=== PATIENT | male | born 1980 | race Caucasian/White ===

== ENCOUNTER 2018-05-02 23:04 | Emergency (ER) ==
[2018-05-02] MEDS ORDERED: LACTATED RINGERS 1,000 ML IV STA (23:26)
[2018-05-02 23:28] VITALS: BMI 46.5
--- NOTE | 2018-05-02 23:30 | ED.PDOC ---
General ED Provider: Dr. INGRID ALVES Chief Complaint: Cough Stated Complaint: Patient present with a 5 day history of productive cough, sinus conjestion and feeling pooly with nausea but no vomiting. Smokes 1 ppweek. He denies any current ETOH. Mid SOB. Time Seen by Physician: 23:25 Mode of Arrival: Walk-In Information Source: Patient Exam Limitations: No limitations Nursing and Triage Documentation Reviewed and Agree: Yes Does patient meet sepsis criteria?: No System Inflammatory Response Syndrome: Not Applicable Sepsis Protocol: For patient's 13 years and over: Temp is 96.8 and below OR 101 and greater Pulse >90 BPM Resp >20/minute Acutely Altered Mental Status Are patient's symptoms suggestive of a new infection, such as: -Pneumonia -Skin, Soft Tissue -Endocarditis -UTI -Bone, Joint Infection -Implantable Device -Acute Abdominal Infection -Wound Infection -Meningitis -Blood Stream Catheter Infection -Unknown Review of Systems - Review Of Systems Constitutional: Reports: Loss of appetite Eyes: Reports: No symptoms Ears, Nose, Mouth, Throat: Reports: Nose discharge Respiratory: Reports: Cough Cardiac: Reports: No symptoms. Denies: Chest pain, Edema GI: Reports: No symptoms : Reports: No symptoms Musculoskeletal: Reports: No symptoms. Denies: Joint pain, Joint swelling Skin: Reports: No symptoms Neurological: Reports: Anxiety Endocrine: Reports: No symptoms Hematologic/Lymphatic: Reports: No symptoms All Other Systems: Reviewed and Negative Past Medical History - Past Medical History Previously Healthy: Yes Endocrine: Reports: None Cardiovascular: Reports: None Respiratory: Reports: None Hematological: Reports: None Gastrointestinal: Reports: None Genitourinary: Reports: Kidney stones Neuro/Psych: Reports: Migraine, Anxiety Musculoskeletal: Reports: None Cancer: Reports: None Other Pertinent Past Medical History: Obesity - Surgical History General Surgical History: Reports: Tonsillectomy, Hernia Repair - Family History Family History: Reports: None - Social History Smoking Status: Current some day smoker, Light tobacco smoker, Chews tobacco Hx Substance Use: No Alcohol Screening: Occasionally - Immunizations Tetanus Shot up to Date: (UNKNOWN) Physical Exam - Physical Exam Appearance: Ill-appearing, Obese Ill-appearing: Moderate Pain Distress: Mild Eyes: JOELLEN, EOMI, Conjunctiva clear ENT: Ears normal, Nose normal, Oropharynx normal Neck: Supple Respiratory: Airway patent, Breath sounds clear, Breath sounds equal, Respirations nonlabored Cardiovascular: RRR, Pulses normal, No rub, No murmur GI/: Soft, Nontender, No masses, Bowel sounds normal, No Organomegaly Musculoskeletal: Normal strength, ROM intact, No edema, No calf tenderness Skin: Warm, Dry Neurological: Sensation intact, Motor intact Psychiatric: Anxious Interpretation - Radiology Interpretation Radiology Interpretation By: ED Physician Radiology Results: Negative Exam Interpreted: Portable CXR Re-Evaluation - Re-Evaluation Time of Re-Evaluation: 01:10 Status: Improved (breathing better) Critical Care Note - Critical Care Note Total Time (mins): 0 Comments: Labs reviewed and discussed wit patient Discussed elevated blood pressure and need to follow up Course - Course Hematology/Chemistry: 05/02/18 23:50 05/02/18 23:50 Orders, Labs, Meds: Lab Review 05/02/18 05/02/18 05/02/18 23:50 23:50 23:50 WBC 12.65 H RBC 5.19 Hgb 15.1 Hct 45.7 MCV 88.1 MCH 29.1 MCHC 33.0 RDW Coeff of Jarad 13.3 Plt Count 269 Immature Gran % (Auto) 0.5 Neut % (Auto) 66.8 Lymph % (Auto) 19.6 [place] % (Auto) 9.2 Eos % (Auto) 3.4 Baso % (Auto) 0.5 Immature Gran # (Auto) 0.1 Neut # (Auto) 8.5 H Lymph # (Auto) 2.5 [place] # (Auto) 1.2 Eos # (Auto) 0.4 Baso # (Auto) 0.1 Sodium 138 Potassium 4.4 Chloride 104 Carbon Dioxide 25 Anion Gap 13.4 BUN 12 Creatinine 0.95 Estimated GFR (MDRD) 90.00 BUN/Creatinine Ratio 12.63 Glucose 199 H Hemoglobin A1c Lactic Acid Calcium 9.7 Total Bilirubin 0.4 AST 19 ALT 41 Alkaline Phosphatase 101 Total Protein 7.1 Albumin 3.5 Globulin 3.6 Albumin/Globulin Ratio 0.97 Procalcitonin < 0.05 Urine Color Urine Clarity Urine pH Ur Specific [place] Urine Protein Urine Glucose (UA) Urine Ketones Urine Blood Urine Nitrite Urine Bilirubin Urine Urobilinogen Ur Leukocyte Esterase Influ A Molecular Assay Influ B Molecular Assay 05/02/18 05/02/18 05/02/18 23:50 23:50 23:50 WBC RBC Hgb Hct MCV MCH MCHC RDW Coeff of Jarad Plt Count Immature Gran % (Auto) Neut % (Auto) Lymph % (Auto) [place] % (Auto) Eos % (Auto) Baso % (Auto) Immature Gran # (Auto) Neut # (Auto) Lymph # (Auto) [place] # (Auto) Eos # (Auto) Baso # (Auto) Sodium Potassium Chloride Carbon Dioxide Anion Gap BUN Creatinine Estimated GFR (MDRD) BUN/Creatinine Ratio Glucose Hemoglobin A1c Lactic Acid 21.5 H Calcium Total Bilirubin AST ALT Alkaline Phosphatase Total Protein Albumin Globulin Albumin/Globulin Ratio Procalcitonin Urine Color Yellow Urine Clarity Clear Urine pH 6.0 Ur Specific [place] 1.025 Urine Protein Negative Urine Glucose (UA) Trace Urine Ketones Negative Urine Blood Negative Urine Nitrite Negative Urine Bilirubin Negative Urine Urobilinogen 0.2 Ur Leukocyte Esterase Negative Influ A Molecular Assay Negative by naat Influ B Molecular Assay Negative by naat 05/03/18 00:00 WBC RBC Hgb Hct MCV MCH MCHC RDW Coeff of Jarad Plt Count Immature Gran % (Auto) Neut % (Auto) Lymph % (Auto) [place] % (Auto) Eos % (Auto) Baso % (Auto) Immature Gran # (Auto) Neut # (Auto) Lymph # (Auto) [place] # (Auto) Eos # (Auto) Baso # (Auto) Sodium Potassium Chloride Carbon Dioxide Anion Gap BUN Creatinine Estimated GFR (MDRD) BUN/Creatinine Ratio Glucose Hemoglobin A1c 5.8 Lactic Acid Calcium Total Bilirubin AST ALT Alkaline Phosphatase Total Protein Albumin Globulin Albumin/Globulin Ratio Procalcitonin Urine Color Urine Clarity Urine pH Ur Specific [place] Urine Protein Urine Glucose (UA) Urine Ketones Urine Blood Urine Nitrite Urine Bilirubin Urine Urobilinogen Ur Leukocyte Esterase Influ A Molecular Assay Influ B Molecular Assay Orders Category Date Time Status NEBULIZER TREATMENT Stat CARDIO 05/02/18 23:33 Completed ED APPLY O2 .ONCE EMERGENCY 05/02/18 23:27 Active ED CHIEF COUNSEL APPLIED .ONCE EMERGENCY 05/02/18 23:27 Active ED IV/MEDIPORT/POWERPORT .ONCE EMERGENCY 05/02/18 23:54 Active ED VITAL SIGNS Q1HR EMERGENCY 05/02/18 23:27 Active BLOOD CULTURE (ED ONLY) Stat LAB 05/02/18 23:50 Received CBC W/ AUTO DIFF Stat LAB 05/02/18 23:50 Completed COMPREHENSIVE METABOLIC PANEL Stat LAB 05/02/18 23:50 Completed FLU A & B MOLECULAR [FLU A/B MOLECULAR] Stat LAB 05/02/18 23:50 Completed HEMOGLOBIN A1C Stat LAB 05/03/18 00:00 Completed LACTIC ACID Stat LAB 05/02/18 23:50 Completed MOLECULAR GROUP A STREP Stat LAB 05/02/18 23:50 Completed PROCALCITONIN Stat LAB 05/02/18 23:50 Completed URINALYSIS C & S IF INDICATED Stat LAB 05/02/18 23:50 Completed 0.9 % Sodium Chloride [Saline Flush] MEDS 05/02/18 23:54 Discontinued 1 syr IVF PRN PRN Azithromycin [Zithromax] MEDS 05/03/18 00:07 Discontinued 500 mg PO ONCE STA Ipratropium/Albuterol Neb [Duoneb] MEDS 05/02/18 23:32 Discontinued 1 vial NEB ONCE STA Methylprednisolone Sod Succ/Pf [Solu-Medrol 125 mg] MEDS 05/02/18 23:32 Discontinued 125 mg IVP ONCE STA Ringers Lactated Solution [Lactated Ringers] 1,000 ml MEDS 05/02/18 23:26 Discontinued IV 100 mls/hr CHEST, 1V AP ONLY Stat RADS 05/02/18 23:26 Taken Medications Discontinued Medications Generic Name Dose Route Start Last Admin Trade Name Freq PRN Reason Stop Dose Admin Albuterol/Ipratropium 1 vial 05/02/18 23:32 05/02/18 23:48 Duoneb NEB 05/02/18 23:33 1 vial ONCE STA Administration Azithromycin 500 mg 05/03/18 00:07 05/03/18 00:24 Zithromax PO 05/03/18 00:08 500 mg ONCE STA Administration Lactated Ringer's 1,000 mls @ 100 mls/hr 05/02/18 23:26 05/03/18 00:02 Lactated Ringers IV 05/03/18 09:25 100 mls/hr .Q10H STA Administration Methylprednisolone Sodium Succinate 125 mg 05/02/18 23:32 05/03/18 00:06 Solu-Medrol 125 Mg IVP 05/02/18 23:33 125 mg ONCE STA Administration Sodium Chloride 1 syr 05/02/18 23:54 05/03/18 00:02 Saline Flush IVF 1 syr PRN PRN Administration To flush IV Vital Signs: Temp Pulse Resp BP Pulse Ox 05/03/18 01:10 99.6 F 101 H 20 155/107 H 98 05/02/18 23:05 99.7 F H 120 H 24 139/91 H 95 Departure - Departure Time of Disposition: 01:15 Disposition: HOME SELF-CARE Discharge Problem: Elevated blood pressure reading, Obesity, Class III, BMI 40-49.9 (morbid obesity) Acute bronchitis Qualifiers: Bronchitis organism: other organism Qualified Code(s): J20.8 - Acute bronchitis due to other specified organisms Allergic rhinitis Qualifiers: Allergic rhinitis trigger: unspecified Allergic rhinitis seasonality: seasonal Qualified Code(s): J30.2 - Other seasonal allergic rhinitis Instructions: Acute Bronchitis (ED), Hypertension (ED), Low Fat Diet (ED), Weight Management (ED) Condition: Stable Pt referred to PMD for follow-up: Yes IPMP verified?: No Additional Instructions: Stop smoking Take medications as prescribed Follow up with PCP in 3 days to recheck your blood pressure Take steps to loose weight. Return if worse. Prescriptions: Azithromycin [Zithromax] 250 mg PO DIRECTED #6 tablet Prednisone 20 mg PO DAILYWM #5 tablet Allergies/Adverse Reactions: Allergies No Known Drug Allergies Adverse Reaction (Verified 05/02/18 23:15) Home Medications: Ambulatory Orders Azithromycin [Zithromax] 250 mg PO DIRECTED #6 tablet 05/03/18 Prednisone 20 mg PO DAILYWM #5 tablet 05/03/18 Disposition Discussed With: Patient
[2018-05-02] MEDS ORDERED: SOLU-MEDROL 125 MG IVP STA (23:32)
[2018-05-02] MEDS ORDERED: DUONEB NEB STA (23:32)
[2018-05-03] MEDS ORDERED: ZITHROMAX PO STA (00:07)
[2018-05-03 01:21] VITALS: BP 155/107; TEMP 99.6
--- NOTE | 2018-05-03 08:30 | DI ---
EXAM: Single view of the chest. History: Cough. Comparison: None available. Findings: Portable lordotic projection limits evaluation. Heart size is normal. No definite acute infiltrates. No appreciable pleural fluid and no pneumothorax. No acute osseous abnormalities. The re is right paratracheal prominence which is probably vascular in nature. Impression: No acute cardiopulmonary process.
== END 2018-05-03 01:20 | disposition home or self-care (01) ==
LOC: ED 23:04
DX: J20.9 Acute bronchitis, unspecified (principal); J30.2 Other seasonal allergic rhinitis; R03.0 Elevated blood-pressure reading, without diagnosis of hypertension; F17.210 Nicotine dependence, cigarettes, uncomplicated; Z68.41 Body mass index [BMI] 40.0-44.9, adult; E66.01 Morbid (severe) obesity due to excess calories
CPT/HCPCS: 36415; 80053; 81001; 83036; 83605; 84145; 85025; 87040; 87502; 87651; 94640; 96361; 96374; 99283